=== PATIENT | female | born 1995 | race Two or more races ===

== ENCOUNTER 2020-02-21 02:50 | Inpatient (IN) | payer OTHER ==
[~2020-02-21] VITALS: Ht 162.6 cm; Wt 79.4 kg
[2020-02-21] MEDS ORDERED: OXYTOCIN 30 UNITS/LACT RINGERS 500 ML IV ONE (03:30)
[2020-02-21] MEDS ORDERED: CITRIC ACID/SODIUM CITRATE 30 ML SOLUTION UDCUP PO PRN (03:30)
[2020-02-21] MEDS ORDERED: METOCLOPRAMIDE HCL 5 MG/ML 2 ML VIAL IVP PRN (03:30)
[2020-02-21] MEDS ORDERED: RINGERS SOLUTION,LACTATED 1,000 ML IV PRN (03:30)
[2020-02-21] MEDS ORDERED: ROPIVACAINE HCL/PF 0.2% 100 ML ED ONE (03:49)
[2020-02-21] MEDS: RINGERS SOLUTION,LACTATED 1,000 ML IV SCH ×3 (03:51→07:06)
[2020-02-21 03:53] VITALS: BP 120/65
[2020-02-21] MEDS ORDERED: DiphenhydrAMINE HCL 50 MG/ML VIAL IVP PRN (04:00)
[2020-02-21] MEDS ORDERED: NALBUPHINE HCL 10 MG/ML VIAL IVP PRN (04:00)
[2020-02-21] MEDS ORDERED: ROPIVACAINE HCL/PF 0.2% 100 ML ED PRN (04:00)
[2020-02-21] MEDS ORDERED: ONDANSETRON HCL 4 MG/2 ML VIAL IVP PRN (04:00)
[2020-02-21 04:34] LABS: BASOPHILS % (AUTO) 0.5 % (0.0-2.0); EOSINOPHILS % (AUTO) 0.1 % (1.0-6.0); HEMATOCRIT 32.9 % (36-46); HEMOGLOBIN 11.4 g/dL (12.0-16.0); LYMPHOCYTES # (AUTO) 1.6 K/uL (1.0-4.8); MEAN CORPUSCULAR HEMOGLOBIN 31.7 pg (26.0-34.0); MEAN CORPUSCULAR HGB CONC 34.6 G/dL (31.0-37.0); MEAN CORPUSCULAR VOLUME 92 fL (80-100); MONOCYTES # (AUTO) 0.6 K/uL (0.1-1.0); MONOCYTES % (AUTO) 5.4 % (2.0-9.0); NEUTROPHILS # (AUTO) 8.2 K/uL (1.8-7.7); PLATELET COUNT (AUTO)-OB 124 K/uL (150-450); RED BLOOD CELL COUNT(AUTO) 3.59 MIL/uL (4.00-5.20); RED CELL DISTRIBUTION WIDTH 13.5 % (11.5-14.5)
[2020-02-21] MEDS ORDERED: INFLUENZA VIRUS VACCINE QVS 2020-21 (6MO+)/PF 60 MCG/0.5 ML SYRINGE IM ONE (06:15)
[2020-02-21 06:51] LABS: COVID AG,FIA SOURCE NASOPHARYNGEAL
[2020-02-21] MEDS ORDERED: OXYGEN THERAPY IH SCH (08:00)
[2020-02-21] MEDS ORDERED: OXYTOCIN 30 UNITS/LACT RINGERS 500 ML IV PRN (09:00)
[2020-02-21] MEDS ORDERED: OxyCODONE HCL/ACETAMINOPHEN 5-325 MG TABLET PO PRN ×2 (13:00)
[2020-02-21] MEDS ORDERED: RINGERS SOLUTION,LACTATED 1,000 ML IV ONE (13:00)
[2020-02-21] MEDS ORDERED: GLYCERIN/WITCH HAZEL LEAF 40 PADS JAR TP PRN (13:00)
[2020-02-21] MEDS ORDERED: MEASLES/MUMPS/RUBELLA VACCINE, LIVE 0.5 ML/VIAL SQ ONE (13:00)
[2020-02-21] MEDS ORDERED: LANOLIN 7 GM OINTMENT TP PRN (13:00)
[2020-02-21] MEDS ORDERED: BENZOCAINE 20%/MENTHOL 56 GM SPRAY CANISTER TP PRN (13:00)
[2020-02-21] MEDS: IBUPROFEN 600 MG TABLET PO PRN ×2 (13:17→20:15)
[2020-02-21] MEDS: MAGNESIUM HYDROXIDE SUSPENSION 30 ML UDCUP PO SCH (20:15)
[2020-02-21 23:35] VITALS: BP 107/60
[2020-02-22] MEDS: MAGNESIUM HYDROXIDE SUSPENSION 30 ML UDCUP PO SCH (08:06)
[2020-02-22] MEDS: IBUPROFEN 600 MG TABLET PO PRN (09:07)
[2020-02-22] MEDS ORDERED: IBUP-2071 PO (09:15)
[2020-02-22] MEDS ORDERED: FERR-89 PO (09:16)
[2020-02-22] MEDS ORDERED: DOCU-275 PO (09:16)
[2020-02-22] MEDS ORDERED: PREN-217 PO (09:18)
== END 2020-02-22 15:55 | disposition home or self-care (01) | DRG 807 ==
LOC: 4S 02:50 → OBSVTOIN 02:50
PROVIDERS: ADMIT Obstetrics & Gynecology; ATTEND Obstetrics & Gynecology
PROC: 10E0XZZ Delivery of Products of Conception, External Approach (ICD-10-PCS; principal; 2020-02-21)
PROC: 0W8NXZZ Division of Female Perineum, External Approach (ICD-10-PCS; 2020-02-21)
PROC: 3E0S3BZ Introduction of Anesthetic Agent into Epidural Space, Percutaneous Approach (ICD-10-PCS; 2020-02-21)
PROC: 00HU33Z Insertion of Infusion Device into Spinal Canal, Percutaneous Approach (ICD-10-PCS; 2020-02-21)
DX: O77.0 Labor and delivery complicated by meconium in amniotic fluid (principal); Z37.0 Single live birth; Z3A.39 39 weeks gestation of pregnancy
CPT/HCPCS: 85461; 86850; 86870; 86900; 86901; 87426; J2590; J2795; J7120